=== PATIENT | female | born 1990 | race American Indian/Alaskan Native ===

== ENCOUNTER 2016-11-24 06:56 | Emergency (ER) | payer OTHER ==
[2016-11-24 07:30] VITALS: BP 131/91
[2016-11-24] MEDS ORDERED: MOTRIN PO ONE (09:24)
--- NOTE | 2016-11-24 10:04 | XRay Report ---
ROUTINE CHEST, TWO VIEWS: HISTORY: chest pain. The trachea, heart, mediastinal contour, lung rosenberg and bony thorax are unremarkable. IMPRESSION: Unremarkable chest x-ray.
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
--- NOTE | 2016-11-24 10:05 | XRay Report ---
RIGHT HAND, 3 views: History: Right hand pain. The bony architecture is intact. Bony alignment is normal. No soft tissue abnormalities are seen. The joint spaces appear preserved. IMPRESSION: Normal right hand.
--- NOTE | 2016-11-24 10:05 | XRay Report ---
LEFT ELBOW, 3 views: History: Left elbow pain The bony architecture is intact without evidence of fracture or dislocation. No significant soft tissue abnormality is seen. IMPRESSION: Normal left elbow.
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
== END 2016-11-24 12:17 | disposition home or self-care (01) ==
LOC: ED 06:56
DX: S66.812A Strain of other specified muscles, fascia and tendons at wrist and hand level, left hand, initial encounter (principal); S13.4XXA Sprain of ligaments of cervical spine, initial encounter; S46.812A Strain of other muscles, fascia and tendons at shoulder and upper arm level, left arm, initial encounter; F12.10 Cannabis abuse, uncomplicated; R07.81 Pleurodynia; V49.49XA Driver injured in collision with other motor vehicles in traffic accident, initial encounter; Y93.89 Activity, other specified; Y99.8 Other external cause status; Y92.488 Other paved roadways as the place of occurrence of the external cause
CPT/HCPCS: 71020; 71110; 93005; 93010

== ENCOUNTER 2017-07-16 16:54 | Emergency (ER) | payer MEDICAID ==
[2017-07-16 17:06] VITALS: BP 152/93
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
[2017-07-16 20:24] LABS: Bilirubin,Urine NEG (Negative); Blood,Urine NEG (Negative); Color,Urine Yellow (Yellow); Mucus,Urine FEW /HPF; Nitrite,Urine NEG (Negative); Protein,Urine <15 mg/dL mg/dL (Negative)
[2017-07-16 20:33] LABS: HCG Qualitative,Urine Negative (Negative)
[2017-07-16] MEDS ORDERED: ROCEPHIN IM ONE (21:04)
[2017-07-16] MEDS ORDERED: ZITHROMAX PO ONE (21:04)
[2017-07-16] MEDS ORDERED: XYLOCAINE 1% MPF 5 mL INFILTRATI ONE (21:04)
== END 2017-07-16 22:17 | disposition home or self-care (01) ==
LOC: ED 16:54
DX: N76.0 Acute vaginitis (principal); J06.9 Acute upper respiratory infection, unspecified; F12.10 Cannabis abuse, uncomplicated; B96.89 Other specified bacterial agents as the cause of diseases classified elsewhere; N89.8 Other specified noninflammatory disorders of vagina
CPT/HCPCS: 81001; 81025; 87086; 87210; 87591; 96372; 99284; J0696

== ENCOUNTER 2021-10-27 14:02 | Emergency (ER) | payer OTHER ==
[2021-10-27 14:55] VITALS: BP 136/78
[2021-10-27] MEDS ORDERED: HYDROcodone/ACETAMINOPHEN 5-325 MG TAB PO STA (21:47)
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
== END 2021-10-28 01:09 | disposition home or self-care (01) ==
LOC: ED 14:02
DX: M79.18 Myalgia, other site (principal); M25.511 Pain in right shoulder; M54.2 Cervicalgia; R51.9 Headache, unspecified; Z79.899 Other long term (current) drug therapy; V87.7XXA Person injured in collision between other specified motor vehicles (traffic), initial encounter; Y93.89 Activity, other specified; Y92.488 Other paved roadways as the place of occurrence of the external cause; Y99.8 Other external cause status
CPT/HCPCS: 99283